=== PATIENT | female | born 1975 | race Two or more races ===

== ENCOUNTER 2017-06-19 08:00 | Day surgery (SDC) | payer BC ==
[~2017-06-19] VITALS: Ht 152.4 cm; Wt 95.3 kg
[~2017-06-19 08:00] MED LIST: MELO15TA23 PO; TRAM50TA PO
[2017-06-19] MEDS ORDERED: PANT40TA5 PO (08:31)
[2017-06-19] MEDS ORDERED: HYDR-2758 PO (08:31)
[2017-06-19] MEDS ORDERED: LIDOCAINE 2% PF Vial for OR 5 ML VIAL. ONE (08:40)
[2017-06-19] MEDS ORDERED: PROPOFOL 20 ML IV ONE (08:40)
[2017-06-19] MEDS ORDERED: fentaNYL PF VIAL 100 MCG/2 ML VIAL ONE (08:40)
[2017-06-19 08:48] LABS: NEG OBC UR NEG; POS OBC UR POS
[2017-06-19] MEDS ORDERED: IV RINGERS,LACTATED 1000ML 1,000 ML IV SCH (08:58)
[2017-06-19] MEDS ORDERED: PROCHLORPERAZINE 10 MG/2 ML VIAL. IV PRN (09:00)
[2017-06-19] MEDS ORDERED: LIDOCAINE 1% 1 ML SYRINGE. ID PRN (09:00)
[2017-06-19] MEDS ORDERED: HYDROmorphone 2 MG/ML VIAL IV PRN (09:00)
[2017-06-19] MEDS ORDERED: fentaNYL PF VIAL 100 MCG/2 ML VIAL IV PRN ×2 (09:00)
[2017-06-19] MEDS ORDERED: ONDANSETRON PF 4 MG/2 ML VIAL. IV PRN (09:00)
[2017-06-19] MEDS ORDERED: MORPHINE SULFATE 2 MG/ML DISP.SYRIN. IV PRN (09:00)
[2017-06-19] MEDS ORDERED: SEVOFLURANE 16 TO 30 MINUTES. IH ONE (09:30)
[2017-06-19] MEDS ORDERED: DEXAMETHASONE SOD PHOS 20 MG/5 ML VIAL. ONE (09:30)
[2017-06-19] MEDS ORDERED: ONDANSETRON PF 4 MG/2 ML VIAL. ONE (09:35)
[2017-06-19] MEDS ORDERED: BUPIVAC MPF-EPI 0.5%-1:200000 30 ML VIAL. IJ ONE (09:36)
--- NOTE | 2017-06-19 09:54 | PDOC ---
BRIEF OPERATIVE NOTE Pre-Op Diagnosis #[id number] pre op dx and post op: left breast mass excisional bx of left breast mass jas damon ebl 5 ivf 500 sybil well to rr stable. DEX HAIR MD Jun 19, 2017 09:54
--- NOTE | 2017-06-19 10:48 | OP ---
DATE OF SURGERY: 06/19/2017 PREOPERATIVE DIAGNOSIS: Left breast mass. POSTOPERATIVE DIAGNOSIS: Left breast mass. PROCEDURE: Excisional biopsy of left breast mass. SURGEON: Dex Hair M.D. ANESTHESIA: General. ESTIMATED BLOOD LOSS: 5 mL. IV FLUIDS: 500 mL. INDICATIONS: The patient is a 42-year-old female with a painful left breast mass. Imaging has been unremarkable, but the mass is palpable and painful and decision was made to proceed with excision. DESCRIPTION OF PROCEDURE: After informed consent was obtained, the site had been marked. She was taken to the operating room and placed in supine position. After adequate induction of general anesthesia, she was prepped and draped in the usual sterile fashion. The skin was injected with local anesthetic. Skin incision was made over the mass. Subcutaneous tissue divided with cautery. The mass was palpable, it was excised with a rim of normal tissue around it. It was sent to pathology for examination. The wound was irrigated. It was hemostatic. It was closed in layers. The subdermal layer was closed with a 3-0 Vicryl in a running fashion. Skin was closed with 4-0 Monocryl in subcuticular fashion. Additional local was injected. The wound was hemostatic. Sterile dressings were placed. She tolerated the procedure well. There were no apparent complications. She is in the process of being awakened from general anesthesia and transferred to the recovery room. DEX HAIR MD DR: MIGUEL/mary anne JOB#: [id number] / [id number] ADRIANA Dukes MD
[2017-06-19 10:56] VITALS: BP 133/78
--- NOTE | 2017-06-20 17:07 | PATHOLOGY ---
PATHOLOGY REPORT * * * * * * * * FINAL DIAGNOSIS: Breast tissue, left breast mass excisional biopsy: - Fat necrosis with fibrosis and chronic inflammation. COMMENT: There is no evidence of malignancy. (JPM:mgr; 06/20/2017) REPORT ELECTRONICALLY SIGNED BY: Umang Arriaza M.D. DATE/TIME: 06/20/2017 17:06 * * * * * * * * GROSS PATHOLOGY: The specimen is received in formalin, designated "Annita Dunn, left breast mass" and consists of a single rubbery segment of bright yellow, lobulated tissue measuring 3.3 x 2.1 x 1.0 cm. There is palpable nodularity near one edge of the specimen. The margins are inked with black ink and the specimen is serially sectioned to reveal a predominantly fatty appearing cut surface. The previously described area of palpable nodularity corresponds to a rubbery firm, cazares white, poorly defined nodule that grossly measures approximately 0.9cm in maximum dimensions. This area is close to one inked margin grossly. The specimen is submitted entirely in cassettes A1 through A4. The cold ischemic time is 11 minutes and total fixation time is 13 hours and 48 minutes. (JPM; 06/19/17) INITIAL CPT CODE(S): A; 57036 Professional services performed by [facility] [place] [address] Technical services performed by [facility] at [address] [place] [address], [facility] [address] [address]. SPECIMEN(S) RECEIVED: A.Left breast biopsy CLINICAL HISTORY: Left breast mass PATIENT: ANNITA DUNN /AGE: 706/15/1975 (Age: 42) PATIENT #: [id number] ALT CASE #: SPECIMEN COLLECTION DATE: 06/19/2017 SPECIMEN RECEIVED DATE: 06/19/2017 [facility] - [address] [place] [address] - PHONE: [phone] * * * END OF REPORT * * *
== END 2017-06-19 11:15 | disposition home or self-care (01) ==
LOC: SURG 08:00
PROVIDERS: ATTEND Surgery
DX: N63 Unspecified lump in breast (principal); N60.32 Fibrosclerosis of left breast; N64.1 Fat necrosis of breast; H40.9 Unspecified glaucoma; E66.9 Obesity, unspecified; F32.9 Major depressive disorder, single episode, unspecified; Z90.49 Acquired absence of other specified parts of digestive tract
CPT/HCPCS: 19120; 81025; C1769; J0690; J1100; J2001; J2405; J2704; J3010; J3490; 88305

== ENCOUNTER → 2018-06-17 | Outpatient (CLI) | payer BC | END | disposition home or self-care (01) | LOC: KCIC US 10:10 | DX: D25.9 Leiomyoma of uterus, unspecified (principal); N88.8 Other specified noninflammatory disorders of cervix uteri | CPT/HCPCS: 76830; 76856 ==

== ENCOUNTER → 2019-11-25 | Outpatient (CLI) | payer BC ==
[~2019-11-25] MED LIST changes: +HYDR-2761 PO; +PANT40TA77 PO
--- NOTE | 2019-11-25 15:39 | RAD ---
MRI Cervical Spine Without Contrast History: Cervical radicular pain, left greater than right radicular pain Technique: Multiplanar, multi sequential noncontrast MR imaging was performed of the cervical spine. Comparison: October 31, 2012 Findings: There is mild motion. Cervical cord caliber is within normal limits without focal signal abnormality. There is no significant marrow edema. Cervical vertebral body stature and AP alignment are maintained. There is mild disc desiccation greatest C5-C6 and C6-7, somewhat progressed at C3-4 and C4-5. Intervertebral disc spaces are overall adequate. C2-C3: Neural foramina and spinal canal are adequate. C3-C4: Spinal canal and neural foramina are adequate. C4-C5: There is negligible posterior central protrusion. Spinal canal and the neural foramina are adequate. C5-C6: There is shallow posterior protrusion centrally about 2 mm AP overall greater, central canal minimally narrowed about 9 mm. Neural foramina are adequate. C6-C7: Spinal canal and neural foramina are adequate. There is negligible bulge. C7-T1: Spinal canal and neural foramina are adequate. Impression: 1. There is a shallow posterior central protrusion at C5-C6 resulting in mild central canal stenosis. There is no significant cervical neural foramina compromise. There is mild disc desiccation of the cervical spine, somewhat progressed since 2011. Electronically signed by: Jeremiah Fisher MD (11/25/2019 3:36 PM) [facility]
--- NOTE | 2019-11-25 15:48 | RAD ---
MRI Lumbar Spine without contrast History: Low back pain, right leg radiculopathy Technique: Multiplanar, multi sequential noncontrast MR imaging was performed of the lumbar spine. Comparison: None Findings: Lumbar vertebral body stature and AP alignment are maintained. Conus terminates at L1-2. There is mild L5-S1 degenerative disc disease. There is no significant marrow edema. Appearance of increased T2 signal of the distal cord as seen at the superior aspect of the exam may be artifactual unless suspicion for thoracic myelopathy. L1-L2: Spinal canal and neural foramina are adequate. L2-L3: There is mild prominence of posterior epidural fat centrally. There is very shallow protrusion in the right lateral recess slightly indenting the ventral thecal sac without significant spinal stenosis. Neural foramina are adequate. L3-L4: There is mild prominence of posterior epidural fat centrally. Spinal canal and neural foramina are adequate. L4-L5: Neural foramina and spinal canal are adequate. L5-S1: There is left laminectomy defect. Neural foramina and spinal canal are overall adequate. There is very minimal disc osteophyte complex in the left lateral recess near the descending left S1 nerve root without displacement. Impression: 1. There is no significant lumbar spinal stenosis or neural foramina compromise. There is mild L5-S1 degenerative disc disease and spondylosis. Electronically signed by: Jeremiah Fisher MD (11/25/2019 3:45 PM) [facility]
== END | disposition home or self-care (01) ==
LOC: MRI 11:45
PROVIDERS: ATTEND Psychiatry & Neurology Neurology with Special Qualifications in Child Neurology
DX: M50.121 Cervical disc disorder at C4-C5 level with radiculopathy (principal); M51.17 Intervertebral disc disorders with radiculopathy, lumbosacral region; M47.27 Other spondylosis with radiculopathy, lumbosacral region; M48.02 Spinal stenosis, cervical region
CPT/HCPCS: 72141; 72148

== ENCOUNTER → 2020-01-07 | Outpatient (CLI) | payer BC ==
[~2020-01-07] MED LIST changes: +ESOM40CA PO; +HYDR-2769 PO; +LEXAPRO10 MG PO; +NAPR220C4 PO; +SUMA100T4 PO
--- NOTE | 2020-01-08 00:59 | PAIN ---
DATE OF SERVICE: 01/07/2020 INITIAL CONSULTATION FOR PAIN CLINIC CHIEF COMPLAINT: Low back and left lower extremity pain. HISTORY OF PRESENT ILLNESS: The patient is a 44-year-old female who presents with history of pain in the low back and left lower extremity for many years, but status post lumbar laminectomy with good decrease in pain afterwards, this was done in 2014, but the pain returned and she has had some treatment in the past including epidural injections, physical therapy, chiropractic treatment, all of which were not significantly decreasing the pain. Most recently, the epidural injection in 2015 and 2018 for chiropractic treatment and physical therapy. The patient has tried tramadol, hydrocodone, and meloxicam, Flexeril. The patient reports the tramadol works as well as epidural injections at least in the past and she takes one a day, generally at 7:00 a.m. and does very well with no side effects. The patient reports otherwise the pain is always there, sometimes stronger than others, worse with walking, standing, changing positions, better with sitting or lying down, generally does not awaken her from sleep at night, but can occasionally 1-2 times. The patient reports it does not affect her bowel or bladder control, but does affect her ability to walk if the pain is significant and she is more active and she uses a cane at times, but does not have one with her on her visit today. The patient rates her disability rating from 0-10, 10 being the worst, is an 8 with family and home responsibilities and recreational activities, 6 with social activity, 7 with occupation, 10 with sexual behavior, 5 with self-care and 4 with life support activities. The patient did have MRI scan of the lumbar spine showing left laminectomy defect at L5-S1 with neural foraminal and spinal canal overall adequate with very minimal disk osteophyte complex in the left lateral recess near the descending left S1 nerve root, but without significant displacement. PAST MEDICAL HISTORY: Significant for hyperlipidemia, glaucoma, gastroesophageal reflux. PREVIOUS SURGERY: Includes cholecystectomy, tubal ligation, left breast biopsy x 2 in 2017, lumbar laminectomy in 2014 and eye surgery for glaucoma in the past. CURRENT MEDICATIONS: Include tramadol, naproxen, Lexapro, hydrocodone, Nexium, and sumatriptan and also Aleve. ALLERGIES: The patient has no known drug allergies. FAMILY HISTORY: Significant for no major medical problems or conditions that she lists. SOCIAL HISTORY: The patient does not drink alcohol, does not smoke. Denies any illegal, illicit or recreational drugs. She is , lives with her spouse, has one child, living at home, lives locally in [place], [place]. REVIEW OF SYSTEMS: The patient's review of systems is positive for those items mentioned in history of present illness. All systems reviewed and otherwise negative. It is complete, full and well documented on the patient's chart. PHYSICAL EXAMINATION: VITAL SIGNS: The patient's blood pressure is 145/96, pulse 88, respirations 16, temperature 98.4 degrees Fahrenheit, height is 5 feet, weight is 220 pounds. GENERAL: The patient is awake, alert, oriented, appropriate, very pleasant demeanor. HEENT: Shows normocephalic, atraumatic. Extraocular movements are intact and symmetrical. Oral cavity shows mucous membranes moist and pink. Dentition is intact. NECK: Shows anterior throat supple without palpable lymphadenopathy noted. Swallow reflex symmetrical. CHEST: Shows normal on inspection. Breath sounds clear to auscultation bilaterally. HEART: Shows S1, S2 clear. No murmurs auscultated. ABDOMEN: Soft, nontender, nondistended. No palpable organomegaly is noted. There is no rebound or guarding demonstrated. BACK: Shows spine grossly in the midline, normal-appearing cervical lordotic curvature, thoracic kyphotic curvature and lumbar lordotic curvature with well-healed surgical scar in the midline lumbar distribution. Lumbar paraspinous muscle shows symmetrical on inspection, on palpation shows some moderate tenderness, but only diffusely in the upper, middle and lower distribution of paraspinous muscles, but more in the lower distribution, somewhat more on the left than the right, but present bilaterally. The patient shows good rotational motion of lumbar spine, both laterally as well as extension and flexion without significant pain reported. No tenderness over the spinous processes, sacrum or sacroiliac regions with direct palpation. EXTREMITIES: The patient's lower extremities show deep tendon reflexes 2+ in the patellar, 1+ tendo-calcaneus tendons. Motor exam is strong with 5/5 dorsiflexion, extension, quadriceps and hamstring flexion symmetrical. Peripheral pulses are 1+ posterior tibial. No peripheral edema is noted bilaterally. The patient is able to stand, stand on her toes without significant difficulty or loss of balance, walks with normal appearing gait, does not appear to favor the right or left lower extremity significantly, not using any assistive devices to ambulate. SKIN: Shows warm and dry, good turgor. No edema. No sores, rashes or bruising throughout. IMPRESSION: 1. This is a 44-year-old female with a long history of low back pain, left lower extremity pain now over the past 2 months increasing in radicular fashion, decreased almost 100% with tramadol daily. 2. MRI scan of lumbar spine as noted. 3. Obesity. 4. Hyperlipidemia. PLAN: Options were discussed with the patient including conservative medical managements, continued physical therapies, interventional techniques and she would like to find a most conservative approach for this. We will have her continue with physical therapies and stretching and strengthening exercises on her own as well as chiropractic treatment, also we will try Medrol Dosepak as she reports she has done well with these in the past. If not significantly improved, we would recommend a lumbar epidural steroid injection. The patient is doing fairly well; however, on one daily dose of tramadol and I feel this is probably appropriate for her to stay on this at least for the meantime, as she does do well with this without side effects. We have her return after Medrol Dosepak as necessary for interventional lumbar epidural steroid injection if the pain is persistent. RAFA HOWE MD DR: ANNA/mary anne JOB#: [id number] / [id number] ADRIANA Dukes MD
== END | disposition home or self-care (01) ==
LOC: PNCL 13:03
PROVIDERS: ATTEND Anesthesiology
DX: M54.5 Low back pain (principal); M79.605 Pain in left leg; E78.5 Hyperlipidemia, unspecified; K21.9 Gastro-esophageal reflux disease without esophagitis; E66.9 Obesity, unspecified; Z90.49 Acquired absence of other specified parts of digestive tract; Z68.45 Body mass index [BMI] 70 or greater, adult; Z79.899 Other long term (current) drug therapy
CPT/HCPCS: G0463